=== PATIENT | female | born 2000 | race Caucasian/White ===

== ENCOUNTER 2019-05-29 11:54 | Observation (INO) | payer OTHER ==
[~2019-05-29] VITALS: Ht 152.4 cm; Wt 46.4 kg
--- NOTE | ~2019-05-29 | OP ---
PATIENT NAME: ANGELO HICKS MEDICAL RECORD: [id number] :98 LOCATION:[id number] ADMISSION DATE:05/29/19 SURGEON: ASHVIN PILLAI MD DATE OF OPERATION: 05/29/2019 PREOPERATIVE DIAGNOSES: 1. Acute appendicitis with localized peritonitis. 2. History of renal failure status post renal transplant. POSTOPERATIVE DIAGNOSES: 1. Acute appendicitis with localized peritonitis. 2. History of renal failure status post renal transplant. PROCEDURE: Laparoscopic appendectomy. SURGEON: Ashvin Pillai MD REPORT OF PROCEDURE: The patient's abdomen was prepped and draped in sterile fashion. A cutdown was made on the superior aspect of the umbilicus, 0 Vicryls were placed on the fascia bilaterally and the fascia was incised with 15-blade. I then bluntly entered the peritoneal cavity and placed a 12-mm Magdiel port. Under direct visualization, a 5-mm trocar was placed in the left lower quadrant and another was placed in the suprapubic region. I could see evidence of the transplanted kidney in the left lower quadrant and care was taken to make sure not to damage this with trocar placement. The patient's appendix was visualized. There are no signs of perforation or gangrenous. At this point, a window was made in the mesoappendix and the mesoappendix was transected with a 45 white load Endo-BLAYNE stapler. The appendix was then transected at its base using a 45 blue load Endo-BLAYNE stapler. The appendix was placed into an Endo Catch bag. We irrigated out the right lower quadrant and pelvis. Once we could assure there was no sign of any bleeding or leakage, then the ports and insufflation were then removed. The appendix was taken out through the umbilicus. The umbilical fascia was closed with interrupted 0 Vicryls times 3. The wounds were then irrigated out with normal saline and infused with 10 mL of 0.25% Marcaine with epinephrine. The skin incisions were all closed with subcutaneous 5-0 Monocryl and dressed appropriately. COMPLICATIONS: None. CONDITION: Stable. ANESTHESIA: General endotracheal and local. BLOOD LOSS: Minimal. TRANSINT:[id number] Voice Confirmation ID: [id number] DOCUMENT ID: [id number] OPERATIVE REPORT [id number] ANGELO HICKS CHRISTIAN MD CC: LALO MORSE MD [id number] DICTATION DATE: 06/06/19 1043 OPERATIONAL RISK MANAGER: 06/06/19 1645 DIS IN 05/30/19 [place] [id number] [place] [id number]
[2019-05-29] MEDS ORDERED: [UNRECOGNIZED DRUG - REMARK] PO (13:09)
[2019-05-29] MEDS ORDERED: TACROLIMUS ANHYD1 MG PO (13:09)
[2019-05-29] MEDS ORDERED: MACRODANTIN50 MG PO (13:10)
[2019-05-29] MEDS ORDERED: STERAPRED 5MG 125 MG PO (13:10)
[2019-05-29] MEDS ORDERED: PROTONIX20 MG PO (13:10)
[2019-05-29 13:41] LABS: HEMATOCRIT 35.4 % (36.0-48.0); HEMOGLOBIN 11.5 g/dL (12-16); MCH 26.6 pg (26.0-34.0); MCHC 32.5 g/dL (31.0-37.0); MCV 81.8 fL (80.0-100.0); MEAN PLATELET VOLUME 8.8 fL (7.4-10.4); PLATELET COUNT 320 10x3/uL (130-400); RBC 4.33 10x6/uL (4.00-5.40); RDW 14.1 % (11.5-14.5); WBC 23.1 10x3/uL (4.8-10.8)
[2019-05-29 13:43] LABS: HCG URINE NEGATIVE (NEGATIVE)
[2019-05-29 13:50] LABS: CALC OSMOLALITY 284 mosm/kg (275-300); CALCIUM 9.3 mg/dL (8.5-10.1); CARBON DIOXIDE 23.7 mmol/L (21.0-32.0); CHLORIDE - SERUM 105 mmol/L (98-107); CREATININE - SERUM 1.1 mg/dL (0.6-1.3); GLUCOSE 110 mg/dL (74-106); POTASSIUM - SERUM 4.4 mmol/L (3.5-5.1); SODIUM 141 mmol/L (136-145); UREA NITROGEN 20 mg/dL (7-18); eGFR NON AFRICAN AMERICAN 67 mL/min (90-120)
[2019-05-29 13:52] LABS: APPEARANCE CLEAR (CLEAR); COLOR YELLOW (YELLOW)
[2019-05-29 13:53] LABS: BILIRUBIN NEGATIVE (NEGATIVE); GLUCOSE NEGATIVE (NEGATIVE); KETONE NEGATIVE (NEGATIVE); NITRITE NEGATIVE (NEGATIVE); PROTEIN NEGATIVE (NEGATIVE); SPECIFIC GRAVITY 1.015 (1.005-1.020); UROBILINOGEN NORMAL (NORMAL)
[2019-05-29 13:58] LABS: ALBUMIN 4.3 g/dL (3.4-5.0); ALKALINE PHOSPHATASE 68 U/L (46-116); ALT (SGPT) 16 U/L (10-68); AMYLASE - SERUM 92 U/L (25-115); BILIRUBIN - TOTAL 0.74 mg/dL (0.2-1.3); LIPASE 83 U/L (73-393)
[2019-05-29 13:59] LABS: TROPONIN-I < 0.017 ng/mL (0.000-0.060)
[2019-05-29 14:17] LABS: EOSINOPHILS 1 % (0-7); LYMPHOCYTES 11 % (15-50); MONOCYTES 6 % (2-11); NEUTROPHILS 78 % (40-80)
[2019-05-29 14:18] LABS: PLATELET ESTIMATE NORMAL
--- NOTE | 2019-05-29 20:30 | NUR ---
RECEIVED FROM ER WITH FAMILY AT BEDSIDE. A/O WITH NO SIGNS OF DISTRESS. IV TO THE LT FOREARM WITH NO REDNESS OR SWELLING. DENIES NO NEEDS AT THIS TIME. CONTINUE PLAN OF CARE.
--- NOTE | 2019-05-29 21:30 | NUR ---
OBTAINED CONSENTS. DENIES NO QUESTIONS. TRANSFERED TO OR VIA [facility].
[2019-05-29 23:15] VITALS: BP 138/93
--- NOTE | 2019-05-29 23:27 | NUR ---
RECEIVED FROM RECOVERY. ALERT AND ORIENTED WITH NO SIGNS OF ACUTE DISTRESS NOTED. IV TO THE LT FOREARM INFUSING LR @100. LAP SITES X3 NOTED TO THE ABDOMEN, DRESSING CLEAN AND DRY. RESTING IN BED. NO NEEDS NOTED.
[2019-05-29 23:30] VITALS: BP 127/77
[2019-05-29 23:45] VITALS: BP 126/76
[2019-05-30] VITALS: BP 138/93
[2019-05-30 00:30] VITALS: BP 109/71
[2019-05-30 01:00] VITALS: BP 115/85; BP 138/93; Ht 152.4 cm; Wt 46.4 kg
[2019-05-30 01:30] VITALS: BP 120/66
[2019-05-30 04:00] VITALS: BP 119/79
[2019-05-30 05:39] LABS: BASOPHILS 0.1 % (0-2); EOSINOPHILS 0 % (0-7); HEMATOCRIT 30.4 % (36.0-48.0); HEMOGLOBIN 9.6 g/dL (12-16); IMMATURE GRANULOCYTES 0.3 % (0-5); LYMPHOCYTES 4.2 % (15-50); MCH 26.2 pg (26.0-34.0); MCHC 31.6 g/dL (31.0-37.0); MCV 83.1 fL (80.0-100.0); MEAN PLATELET VOLUME 9.2 fL (7.4-10.4); MONOCYTES 2.6 % (2-11); NEUTROPHILS 92.8 % (40-80); PLATELET COUNT 276 10x3/uL (130-400); RBC 3.66 10x6/uL (4.00-5.40); RDW 14.2 % (11.5-14.5)
[2019-05-30 05:53] LABS: WBC 11.7 10x3/uL (4.8-10.8)
[2019-05-30 06:03] LABS: CALC OSMOLALITY 278 mosm/kg (275-300); CARBON DIOXIDE 24.2 mmol/L (21.0-32.0); CHLORIDE - SERUM 105 mmol/L (98-107); GLUCOSE 117 mg/dL (74-106); MAGNESIUM - SERUM 1.4 mg/dL (1.8-2.4); SODIUM 138 mmol/L (136-145); UREA NITROGEN 18 mg/dL (7-18); eGFR NON AFRICAN AMERICAN 75 mL/min (90-120)
--- NOTE | 2019-05-30 07:15 | NUR ---
PT IS RESTING IN BED WITH EYES OPEN. RESPIRATIONS ARE EVEN AND UNLABORED. PT REPORTS PAIN TO ABDOMINAL AREA. WILL ADDRESS. SEE EMAR. PT REPORTS TENDERNESS UPON PALPATION. LAP SITES X 3 TO ABDOMEN. DRESSINGS ARE CDI. BS HYPOACTIVE X 4. PT DENIES PASSING FLATUS SINCE PROCEDURE. PIV TO LEFT FA INFUSING WITHOUT DIFFICULTY. FAMILY AT BEDSIDE. BED IS IN THE LOWEST POSITION. CALL LIGHT AND BEDSIDE TABLE ARE WITHIN REACH. SIDE RAILS X 2. PT DENIES FURTHER NEEDS. WILL CONT TO MONITOR.
--- NOTE | 2019-05-30 08:53 | NUR ---
PT FAMILY TO BRING PT MEDICATION TO COMPLETE MED REC.
[2019-05-30] MEDS ORDERED: NORCO-7.5 PO (09:00)
[2019-05-30 09:16] VITALS: BP 116/64
--- NOTE | 2019-05-30 12:06 | NUR ---
DISCHARGE INSTRUCTIONS COVERED WITH PT AND PT FAMILY MEMBER. (1) PRINTED RX GIVEN TO PT. ALL DISCHARGE PAPERS SIGNED BY PT. PIV TO LEFT FA REMOVED WITH CATHETER TIP INTACT. DRESSING APPLIED. PT DENIES FURTHER QUESTIONS/CONCERNS/NEEDS. PT TO NOTIFY NURSE WHEN READY FOR TRANSPORT OUT OF ROOM.
--- NOTE | 2019-05-30 12:18 | NUR ---
PT TRANSPORTED FROM ROOM VIA WHEELCHAIR [facility]. PT DENIES FURTHER QUESTIONS/CONCERNS/NEEDS AT THIS TIME. PT THANKS THIS NURSE FOR CARE GIVEN DURING THIS SHIFT.
== END 2019-05-30 12:19 | disposition home or self-care (01) ==
LOC: D.ER 11:54 → D.MS 17:47 → OBSVTIME 18:28 → D.MS 05-30 12:19
PROVIDERS: Emergency Medicine; ADMIT Family Medicine; ATTEND Family Medicine
DX: K35.80 Unspecified acute appendicitis (principal); R10.31 Right lower quadrant pain; K21.9 Gastro-esophageal reflux disease without esophagitis; Z94.0 Kidney transplant status; F17.203 Nicotine dependence unspecified, with withdrawal; F12.90 Cannabis use, unspecified, uncomplicated; D50.9 Iron deficiency anemia, unspecified